=== PATIENT | female | born 1990 | race Two or more races ===

== ENCOUNTER 2018-07-10 09:30 | Observation (INO) | payer MEDICAID, OTHER ==
[2018-07-10] MEDS ORDERED: PREN-153 OR (10:31)
== END 2018-07-10 10:50 | disposition home or self-care (01) | DRG 566 ==
LOC: LDRP 09:30
PROVIDERS: ADMIT Specialist; ATTEND Specialist
DX: O26.893 Other specified pregnancy related conditions, third trimester (principal); R10.2 Pelvic and perineal pain; Z3A.28 28 weeks gestation of pregnancy
CPT/HCPCS: 59025; 81002; G0378

== ENCOUNTER 2018-09-19 03:36 | Inpatient (IN) | payer MEDICAID | END 2018-09-20 11:10 | disposition home or self-care (01) | LOC: LDRP 03:36 | PROC: 10E0XZZ Delivery of Products of Conception, External Approach (ICD-10-PCS; principal; ~2018-09-19) | DX: O99.52 Diseases of the respiratory system complicating childbirth (principal); J45.909 Unspecified asthma, uncomplicated; Z37.0 Single live birth; O72.1 Other immediate postpartum hemorrhage ==